=== PATIENT | male | born 1955 | race Native Hawaiian/Other Pacific Islander ===

== ENCOUNTER 2024-10-25 11:51 | Outpatient (CLI) | payer OTHER, SELFPAY | END 2024-10-25 11:52 | disposition home or self-care (01) | LOC: WOUND 11:53 | PROVIDERS: PCP Family Medicine; Visit Provider Nurse Practitioner Family | DX: R23.8 Other skin changes (principal); E10.22 Type 1 diabetes mellitus with diabetic chronic kidney disease; N18.6 End stage renal disease; Z79.4 Long term (current) use of insulin; Z99.2 Dependence on renal dialysis | CPT/HCPCS: G0463; T1013 ==